=== PATIENT | female | born 2000 | race African-American/Black ===

== ENCOUNTER 2024-05-23 13:00 | Emergency (ER) | payer MEDICAID ==
[~2024-05-23] VITALS: Ht 152.4 cm; Wt 77.0 kg
[2024-05-23 13:05] VITALS: BP 101/64; PULSE 104; RESP 18; TEMP 36; O2SAT 100
== END 2024-05-23 16:34 | disposition left against medical advice (07) ==
LOC: ER 13:00
DX: R10.9 Unspecified abdominal pain (principal); Z53.21 Procedure and treatment not carried out due to patient leaving prior to being seen by health care provider